=== PATIENT | male | born 1995 | race Hispanic/Latino ===

== ENCOUNTER 2017-10-03 23:51 | Emergency (ER) | payer SELFPAY ==
[2017-10-04] MEDS ORDERED: ONDANSETRON HCL MDV 20ML 2 MG/ML VIAL ONE (00:02)
[2017-10-04] MEDS ORDERED: SODIUM CHLORIDE 0.9% 1000ML 1,000 ML IV ONE (00:02)
[2017-10-04] MEDS ORDERED: ACETAMINOPHEN-CODEINE ELIXIR 5 ML UDCUP ONE (00:02)
[2017-10-04 00:22] LABS: BASOPHILS % (AUTO) 0.5 % (0.0-5.0); EOSINOPHILS % (AUTO) 0.5 % (0.0-8.0); HEMATOCRIT 49.1 % (42-54); LYMPHOCYTES % (AUTO) 3.8 % (21.0-51.0); MEAN CORPUSCULAR HEMOGLOBIN 29.8 pg (27.0-33.0); MEAN CORPUSCULAR HGB CONC 33.7 g/dL (32.0-36.0); MEAN CORPUSCULAR VOLUME 88.2 fL (80-100); MONOCYTES % (AUTO) 3.5 % (3.0-13.0); NEUTROPHILS % (AUTO) 91.7 % (40.0-77.0); PLATELET COUNT (AUTO) 249 K/uL (130-400); RED BLOOD CELL COUNT(AUTO) 5.57 MIL/uL (4.50-6.20); RED CELL DISTRIBUTION WIDTH 13.5 % (11.0-15.5); WHITE BLOOD COUNT (AUTO) 13.3 K/uL (4.8-10.8)
[2017-10-04 00:25] LABS: CREATININE 0.9 mg/dL (0.5-1.5); POTASSIUM 3.9 mmol/L (3.5-5.1)
[2017-10-04 00:31] LABS: ALBUMIN 4.3 g/dL (3.5-5.0); BILIRUBIN,TOTAL 0.7 mg/dL (0.2-1.0); TOTAL PROTEIN, SERUM 7.8 g/dL (6.0-8.3)
[2017-10-04] MEDS ORDERED: IOPAMIDOL-370 75 ML VIAL IV ONE (00:52)
[2017-10-04 02:30] LABS: APPEARANCE,URINE Clear (CLEAR); BILIRUBIN,URINE Negative (NEGATIVE); COLOR,URINE Yellow (YELLOW); GLUCOSE, URINE (UA) Negative (NEGATIVE); KETONES,URINE Negative (NEGATIVE); LEUKOCYTE ESTERASE ,URINE Negative (NEGATIVE); NITRATE,URINE Negative (NEGATIVE); OCCULT BLOOD,URINE Negative (NEGATIVE); PH,URINE 8.5 (5.0-8.0); PROTEIN,URINE Negative (NEGATIVE); UROBILINOGEN,URINE 0.2 mg/dL (0.2-1.0)
[2017-10-04] MEDS ORDERED: CEFTRIAXONE SODIUM 1 GM ONE (02:46)
[2017-10-04] MEDS ORDERED: SODIUM CHLORIDE 0.9% 50 ML IV ONE (02:46)
== END 2017-10-04 03:28 | disposition home or self-care (01) ==
LOC: EDH 23:51
DX: K52.9 Noninfective gastroenteritis and colitis, unspecified (principal); Z79.899 Other long term (current) drug therapy
CPT/HCPCS: 36415; 74177; 80053; 81003; 85025; 96361; 96374; 96375; 99285; J0696; J7030; Q9967

== ENCOUNTER 2017-12-01 01:45 | Emergency (ER) | payer BC, OTHER ==
[2017-12-01] MEDS ORDERED: HYDROXYZINE HCL 25 MG TABLET ONE (02:22)
== END 2017-12-01 03:13 | disposition home or self-care (01) ==
LOC: EDH 01:45
DX: F43.22 Adjustment disorder with anxiety (principal); Z79.899 Other long term (current) drug therapy

== ENCOUNTER → 2023-11-04 | Outpatient (CLI) | payer BC | END | disposition home or self-care (01) | LOC: RAH 13:10 | PROVIDERS: ATTEND Family Medicine | DX: M54.12 Radiculopathy, cervical region (principal); R29.898 Other symptoms and signs involving the musculoskeletal system; R20.0 Anesthesia of skin; R20.2 Paresthesia of skin; M54.50 Low back pain, unspecified | CPT/HCPCS: 72125; 72128; 72131 ==